=== PATIENT | male | born 1980 | race African-American/Black ===

== ENCOUNTER 2016-04-24 16:26 | Emergency (ER) | payer SELFPAY ==
[~2016-04-24] VITALS: Ht 175.3 cm; Wt 108.0 kg
[2016-04-24 16:32] VITALS: BP 130/92; PULSE 130; RESP 24; TEMP 98.2; O2SAT 95
[2016-04-24 16:59] LABS: AUTOMATED NEUTROPHIL # 11.3 TH/MM3 (1.8-7.7); BASOPHIL # 0.1 TH/MM3 (0-0.2); BASOPHIL % 0.4 % (0.0-2.0); EOSINOPHIL # 0.1 TH/MM3 (0-0.4); EOSINOPHIL % 0.4 % (0.0-4.0); HEMATOCRIT 40.5 % (39.0-51.0); HEMO FLAGS DIFF FINAL; LYMPH % 14.7 % (9.0-44.0); LYMPHOCYTE # 2.2 TH/MM3 (1.0-4.8); MEAN CELL VOLUME 89.6 FL (80.0-100.0); MEAN CORPUSCULAR HEMOGLOBIN 31.1 PG (27.0-34.0); MEAN CORPUSCULAR HGB CONC 34.7 % (32.0-36.0); MONO % 9.2 % (0.0-8.0); NEUT % 75.3 % (16.0-70.0); PLATELET COUNT 221 TH/MM3 (150-450); RED BLOOD COUNT 4.52 MIL/MM3 (4.50-5.90); RED CELL DISTRIBUTION WIDTH 13.4 % (11.6-17.2)
[2016-04-24 17:00] VITALS: BP 142/78; PULSE 122; RESP 24; O2SAT 98
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
[2016-04-24] MEDS: HALOPERIDOL LACTATE 5 MG/ML AMP IM ONE ×2 (17:12→17:15)
[2016-04-24] MEDS: LORazepam 2 MG/ML VIAL IM ONE ×2 (17:13→17:15)
[2016-04-24 17:16] LABS: POTASSIUM 3.5 MEQ/L (3.5-5.1)
[2016-04-24 17:49] LABS: BACTERIA, URINE RARE /hpf; BLOOD, URINE TRACE (NEG); COMMENT (UR) CULT NOT INDICATED; CULTURE IF INDICATED CULT NOT INDICATED; GLUCOSE,URINE NEG (NEG); KETONE, URINE 80 mg/dL (NEG); MUCUS URINE FEW /lpf (OCC); NITRITE,URINE NEG (NEG); PH, URINE 5.5 (5.0-8.5); URINE COLOR YELLOW (YELLW/STRAW)
[2016-04-24 17:51] LABS: AMPHETAMINE, URINE NEG (NEG); BARBITURATES, URINE NEG (NEG); COCAINE, URINE NEG (NEG)
[2016-04-24 18:00] VITALS: BP 141/80; PULSE 116; RESP 22; O2SAT 98
[2016-04-24 23:00] VITALS: BP 140/79; PULSE 110; RESP 20; O2SAT 98
[2016-04-25 06:28] VITALS: BP 139/78; PULSE 105; RESP 20; O2SAT 98
== END 2016-04-25 08:09 | disposition home or self-care (01) ==
LOC: NEPA 16:26
DX: F20.9 Schizophrenia, unspecified (principal)
CPT/HCPCS: 80048; 80307; 81001; 85025; 99284; J1630; J2060